=== PATIENT | male | born 1960 | race Caucasian/White ===

== ENCOUNTER 2021-01-23 15:04 | Emergency (ER) | payer MEDICARE, OTHER ==
[~2021-01-23 15:04] MED LIST: B12 SL; CERTAGEN1 EACH PO; CYMBALTA 30MG C30 MG PO; DIAZEPAM 5MG TAB5 MG PO; IMITREX100 MG PO; MEGA B PO; MELATONIN5 MG PO; MORPHINE SULFAT30 M3 PO; MOVANTIK25 MG PO; MS CONTIN30 M1 PO; MS CONTIN30 MG PO; OSTEO BI-FLEX1 EAC1 PO; OXYCODONE-ACET1 EACH PO; PRILOSEC20 MG PO; TENORMIN50 MG PO; [UNRECOGNIZED DRUG - OTHER] PO; [UNRECOGNIZED DRUG - OTHER] PO
== END 2021-01-23 17:30 | disposition home or self-care (01) ==
LOC: FER 15:04
DX: S90.121A Contusion of right lesser toe(s) without damage to nail, initial encounter (principal); I10 Essential (primary) hypertension; Z88.6 Allergy status to analgesic agent; W22.03XA Walked into furniture, initial encounter
CPT/HCPCS: 73630